=== PATIENT | female | born 1960 | race African-American/Black ===

== ENCOUNTER → 2021-03-11 11:11 | Outpatient (CLI) | payer OTHER, SELFPAY ==
[2021-03-11 13:04] LABS: COVID19 -Nasal RAPID Negative (Negative)
== END ==
PROVIDERS: Visit Provider Physician Assistant
DX: Z01.812 Encounter for preprocedural laboratory examination (principal); Z20.822 Contact with and (suspected) exposure to COVID-19
CPT/HCPCS: 87635

== ENCOUNTER 2021-03-12 07:18 | Day surgery (SDC) | payer OTHER, SELFPAY ==
[2021-03-12 07:36] VITALS: BMI 26.9
[2021-03-12 07:44] VITALS: BP 160/97; PULSE 70; RESP 16; TEMP 36.2; O2SAT 100
[2021-03-12] MEDS: LACTATED RINGERS 1,000 ML 42 ML IV (07:44)
--- NOTE | 2021-03-12 08:56 | P.HP_ITS ---
History of Present Illness History of Present Illness Date Patient Seen: 03/12/21 Time Patient Seen: 08:56 Chief complaint: SCREENING COLONOSCOPY Narrative: No symptoms. Reviewed cscope from 2010. tortuous colon. Diverticulosis Patient History Medical History Hypertension Pelvic prolapse Family & Social History Family history unavailable: No Social History: household members spouse Tobacco & Substance use: Smoking Status Never smoker alcohol intake current alcohol intake frequency 0-2 drinks per day Substance Use Type does not use Meds Home Medications and Allergies Home Medications Medication Instructions Recorded Confirmed Type losartan 50 mg tablet 100 mg PO DAILY 03/12/21 03/12/21 History Allergies Allergy/AdvReac Type Severity Reaction Status Date / Time codeine AdvReac Intermediate Nausea Verified 03/12/21 07:46 Review of Systems Review of Systems ROS: Yes All systems reviewed with the patient and are negative except as o therwise documented Exam Vital Signs (past 8 hours): - 03/12/21 07:44 Temperature 97.2 F L Pulse Rate 70 Respiratory Rate 16 Blood Pressure 160/97 H Pulse Oximetry 100 Oxygen Delivery Method Room Air Const General: cooperative and comfortable Orientation: alert HENHI Head: normocephalic Ears: external ears normal Nose: external nose normal Face and sinus: normal facial exam Mouth: oral mucosae normal Eyes General: appearance normal, both eyes and all related structures Neck Neck: normal visual inspection Chest Chest: normal inspection of the chest Resp Effort & Inspection: normal respiratory effort Auscultation: clear to auscultation bilaterally Cardio Rate: regular rate Rhythm: regular rhythm Heart Sounds: no murmurs GI Inspection: normal to inspection Palpation: soft and No tender Auscultation: normal bowel sounds Skin General: no rashes or lesions noted and No jaundice Neuro General: patient alert and moves all extremities Cognition: normal cognition Speech: speech normal Extrem General: no pedal edema Psych Appearance: grossly normal Assessment & Plan Assessment & Plan narrative: 61yo female indicated for colon cancer screening. Proceed with colonoscopy
--- NOTE | 2021-03-12 08:58 | PM.PREOP ---
Pre-operative Note COVID-19 COVID-19 status: Negative Result date/Date tested (Pos, Neg/Pending): 03/11/21 Interval Note History & Physical reviewed/Exam performed by Physician: Yes Changes to H&P: No ASA Class (for procedural sedation): II
[2021-03-12] MEDS: fentaNYL 250 MCG/5 ML INJ IV (09:04)
[2021-03-12] MEDS: MIDAZOLAM 5 MG/5 ML VIAL IV (09:04)
--- NOTE | 2021-03-12 09:25 | PM.OP.ENDO ---
Operative Date/Time/Diagnoses Date of procedure: 03/12/21 Time of procedure: 09:25 Pre-op diagnosis: Colon cancer screening Post-op diagnosis: same Procedure & Clinicians Study performed: colonoscopy Same procedure as scheduled: Yes Indications: Colon cancer screening. Surgeon: Chris Cardoso Procedure Notes SCOAP/Timeout: Done Procedure in detail: After the risks and benefits were explained, written and verbal informed consent was obtained. The patient was brought into the procedure room and placed into the left lateral decubitus position. Conscious sedation medication was applied as per nursing documentation. Digital rectal examination was accomplished. The scope was introduced into the patient and advanced under direct visualization to the cecum as identified by the appendiceal orifice and ileocecal valve. The scope was slowly withdrawn to carefully examine the mucosa for any defects or lesions. Comprehensive imaging was accomplished throughout the rectum including the dentate line. The colon was decompressed, the scope was then removed from the patient who tolerated the procedure well. Prep adequate 4mg versed, 100mcg fentanyl Scope withdrawal time: 9min Sedation minutes: 22 Impression: Patient had very mild internal hemorrhoids. The diverticulosis was encountered throughout the sigmoid and extended all the way through into even the ascending colon. There is mild tortuosity is encountered in the sigmoid. No significant polyps mass lesions or inflammatory features identified throughout. Endoscopic diagnosis 1. Diverticulosis 2. Hemorrhoids Post-procedure Plan for aftercare: Repeat colonoscopy will be suggested for 10 years time. An earlier exam should be pursued if symptoms warrant. Disposition: PACU
[2021-03-12 09:29] VITALS: BP 121/68; PULSE 69; RESP 12; TEMP 36.2; O2SAT 98
[2021-03-12 09:34] VITALS: BP 99/62; PULSE 64; RESP 16; O2SAT 100
[2021-03-12 09:41] VITALS: BP 107/68; PULSE 72; RESP 16; O2SAT 99
== END 2021-03-12 09:42 | disposition home or self-care (01) ==
PROVIDERS: Referring Provider Internal Medicine Gastroenterology; Visit Provider Internal Medicine Gastroenterology
PROC: 0DJD8ZZ Inspection of Lower Intestinal Tract, Via Natural or Artificial Opening Endoscopic (ICD-10-PCS; CPT 45378; principal; 2021-03-12 08:30)
DX: Z12.11 Encounter for screening for malignant neoplasm of colon (principal); I10 Essential (primary) hypertension; K57.30 Diverticulosis of large intestine without perforation or abscess without bleeding; K64.9 Unspecified hemorrhoids
CPT/HCPCS: 45378; J2250; J3010

== ENCOUNTER 2022-03-31 16:32 | Emergency (ER) | payer OTHER, SELFPAY ==
[2022-03-31] VITALS (9 sets, daily range): BP systolic 133–181; BP diastolic 69–94; PULSE 74–104; RESP 12–30; TEMP 36.7; O2SAT 98–100; BMI 27.9
[2022-03-31] MEDS: FAMOTIDINE 20 MG/2 ML VIAL IV (16:53)
[2022-03-31] MEDS: EPINEPHrine 1 MG/ML 0.3 MG IM (16:53)
[2022-03-31] MEDS: methylPREDNISolone 125 MG/2 ML VIAL IV (16:54)
[2022-03-31] MEDS: diphenhydrAMINE 50 MG/ML VIAL IV (16:54)
--- NOTE | 2022-03-31 17:15 | PC.NURSE ---
Per Provider pt will be monitored for at least 4 hrs beginning at 1700.
--- NOTE | 2022-03-31 17:16 | ED.ALLEREA ---
HPI - Allergic Reaction <Varinder Patel PA-C - Last Filed: 03/31/22 20:45> General Chief complaint: Allergic Reaction Stated complaint: Bee Sting, Allergic Reaction/Needs Epipen, [place] Time Seen by Provider: 03/31/22 16:44 Mode of arrival: Ambulatory History of Present Illness HPI narrative: 62-year-old female with past history of allergy to bee stings, presents to the ED status post a bee sting sustained just prior to arrival. Patient sustained a bee sting on her hairline, following which she felt her tongue taken and is noticed swelling and redness on her face, followed by itchy generalized hives. Patient denies trouble breathing, wheezing, nausea, vomiting, abdominal pain. Patient does not currently carry an EpiPen on her. No other known allergies. Related Data Home Medications Medication Instructions Recorded Confirmed losartan 50 mg tablet 100 mg PO DAILY 03/12/21 03/12/21 Previous Rx's Medication Instructions Recorded epinephrine 0.3 mg/0.3 mL 0.3 mg (0.3 mL) IM Q4H PRN 03/31/22 injection, auto-injector (EpiPen) anaphylaxis #2 ea Allergies Allergy/AdvReac Type Severity Reaction Status Date / Time codeine AdvReac Intermediate Nausea Verified 03/31/22 16:44 Review of Systems <Varinder Patel PA-C - Last Filed: 03/31/22 20:45> Review of Systems ROS Unobtainable: All systems reviewed & are unremarkable except as noted in HPI and below Constitutional Constitutional: Denies chills, Denies fatigue, Denies fever(s), Denies frequent falls, Denies lethargy and Denies weakness Eyes Eyes: Denies change in vision, Denies eye discharge, Denies irritation and Denies loss of vision ENT Ears, Nose, Mouth, and Throat: Denies change in voice, Denies dizziness, Reports lip swelling, Denies neck pain, Denies sore throat, Denies throat swelling and Reports tongue swelling Comments: Facial swelling, erythema Cardiovascular Cardiovascular: Denies chest pain, Denies irregular heart rhythm, Denies lightheadedness, Denies palpitations, Denies dyspnea, Denies dyspnea on exertion and Denies orthopnea Respiratory Respiratory: Denies cough, Denies dyspnea, Denies dyspnea on exertion and Denies wheezing Gastrointestinal Gastrointestinal: Denies abdominal pain, Denies change in bowel habits, Denies diarrhea, Denies nausea and Denies vomiting Genitourinary Genitourinary: Denies hematuria, Denies flank pain, Denies urinary incontinence and Denies urinary urgency Musculoskeletal Musculoskeletal: Denies back pain, Denies muscle weakness, Denies neck pain, Denies numbness and Denies tingling Integumentary/Breasts Skin/Breast: Denies pruritus, Denies erythema, Reports rash and Denies wounds Comments: Generalized Itchy rash Neurologic Neurologic: Denies behavioral changes, Denies confusion, Denies dizziness, Denies frequent falls, Denies loss of vision, Denies numbness, Denies tingling and Denies weakness Psychiatric Psychiatric: Denies anxiety, Denies behavioral changes, Denies confusion, Denies depression, Denies homicidal ideation and Denies suicidal ideation Endocrine Endocrine: Denies fatigue, Denies flushing and Denies palpitations Hematologic/Lymphatic Hematologic/Lymphatic: Denies easy bruising Allergic/Immunologic Allergic/Immunologic: Denies urticaria, Reports lip swelling, Denies throat swelling, Reports tongue swelling and Denies wheezing Patient History <Varinder Patel PA-C - Last Filed: 03/31/22 20:45> Medical History Hypertension Pelvic prolapse Social History household members: spouse Smoking Status: Never smoker alcohol intake: current Smoking Status: Never smoker alcohol intake frequency: 0-2 drinks per day Substance Use Type: does not use Exam <Varinder Patel PA-C - Last Filed: 03/31/22 20:45> Narrative Exam Narrative: Const General:?cooperative, healthy appearing and comfortable [facility] Head:?normal to inspection Ears:?hearing grossly normal bilaterally Nose:?external nose normal Face and sinus:?normal facial exam and sinuses nontender; Mouth:?oral mucosae normal; mild tongue swelling Throat:?posterior oropharynx normal; airway is patent Eyes General:?appearance normal, both eyes and all related structures Neck Neck:?normal visual inspection and no lymphadenopathy noted Resp Effort & Inspection:?normal respiratory effort Auscultation:?clear to auscultation bilaterally; no wheezing bilaterally Cardio Rate:?regular rate Rhythm:?regular rhythm Integumentary Itchy, erythematous generalized hives Neuro General:?patient alert, patient awake and patient oriented x3 Initial Vital Signs Initial Vital Signs: Vital Signs Temperature 98.0 F 03/31/22 16:41 Pulse Rate 104 H 03/31/22 16:41 Respiratory Rate 12 03/31/22 16:41 Blood Pressure 181/94 H 03/31/22 16:41 Pulse Oximetry 99 03/31/22 16:41 Oxygen Delivery Method 03/31/22 16:41 <Ani Juarez DO - Last Filed: 04/01/22 08:03> Initial Vital Signs Initial Vital Signs: Vital Signs Temperature 98.0 F 03/31/22 16:41 Pulse Rate 104 H 03/31/22 16:41 Respiratory Rate 12 03/31/22 16:41 Blood Pressure 181/94 H 03/31/22 16:41 Pulse Oximetry 99 03/31/22 16:41 Oxygen Delivery Method 03/31/22 16:41 Course <Varinder Patel PA-C - Last Filed: 03/31/22 20:45> Orders Ordered: Discontinued Medications Diphenhydramine HCl (Diphenhydramine 50 Mg/Ml Vial) 50 mg IV NOW ONE Stop: 03/31/22 16:50 Last Admin: 03/31/22 16:54 Dose: 50 mg Documented By: FRANTZ Epinephrine HCl (Epinephrine 1 Mg/Ml) 0.3 mg IM NOW ONE Stop: 03/31/22 16:50 Last Admin: 03/31/22 16:53 Dose: 0.3 mg Documented By: FRANTZ Famotidine (Famotidine 20 Mg/2 Ml Vial) 20 mg IV NOW SARATH Last Admin: 03/31/22 16:53 Dose: 20 mg Documented By: FRANTZ Methylprednisolone (Methylprednisolone 125 Mg/2 Ml Vial) 125 mg IV NOW ONE Stop: 03/31/22 16:50 Last Admin: 03/31/22 16:54 Dose: 125 mg Documented By: FRANTZ Vital Signs Vital signs: Vital Signs - 8 hr 03/31/22 16:41 03/31/22 16:59 03/31/22 17:00 Temperature 98.0 F Pulse Rate 104 H 87 88 Respiratory Rate 12 16 30 H Blood Pressure 181/94 H Pulse Oximetry 99 100 100 Oxygen Delivery Method Room Air 03/31/22 17:01 03/31/22 17:01 03/31/22 17:30 Temperature Pulse Rate 85 Respiratory Rate 26 H Blood Pressure 174/81 H 152/78 H Pulse Oximetry 100 Oxygen Delivery Method Nasal Cannula 03/31/22 17:30 03/31/22 18:00 03/31/22 18:00 Temperature Pulse Rate 77 74 Respiratory Rate 13 15 Blood Pressure 143/69 H Pulse Oximetry 100 98 Oxygen Delivery Method 03/31/22 18:30 03/31/22 18:30 03/31/22 19:00 Temperature Pulse Rate 75 Respiratory Rate 13 Blood Pressure 133/75 136/71 Pulse Oximetry 98 Oxygen Delivery Method 03/31/22 19:00 Temperature Pulse Rate 76 Respiratory Rate 15 Blood Pressure Pulse Oximetry 98 Oxygen Delivery Method Room Air <Ani Juarez, - Last Filed: 04/01/22 08:03> Orders Ordered: Discontinued Medications Diphenhydramine HCl (Diphenhydramine 50 Mg/Ml Vial) 50 mg IV NOW ONE Stop: 03/31/22 16:50 Last Admin: 03/31/22 16:54 Dose: 50 mg Documented By: FRANTZ Epinephrine HCl (Epinephrine 1 Mg/Ml) 0.3 mg IM NOW ONE Stop: 03/31/22 16:50 Last Admin: 03/31/22 16:53 Dose: 0.3 mg Documented By: FRANTZ Famotidine (Famotidine 20 Mg/2 Ml Vial) 20 mg IV NOW SARATH Last Admin: 03/31/22 16:53 Dose: 20 mg Documented By: FRANTZ Methylprednisolone (Methylprednisolone 125 Mg/2 Ml Vial) 125 mg IV NOW ONE Stop: 03/31/22 16:50 Last Admin: 03/31/22 16:54 Dose: 125 mg Documented By: FRANTZ Vital Signs Vital signs: Vital Signs - 8 hr 03/31/22 16:41 03/31/22 16:59 03/31/22 17:00 Temperature 98.0 F Pulse Rate 104 H 87 88 Respiratory Rate 12 16 30 H Blood Pressure 181/94 H Pulse Oximetry 99 100 100 Oxygen Delivery Method Room Air 03/31/22 17:01 03/31/22 17:01 03/31/22 17:30 Temperature Pulse Rate 85 Respiratory Rate 26 H Blood Pressure 174/81 H 152/78 H Pulse Oximetry 100 Oxygen Delivery Method Nasal Cannula 03/31/22 17:30 03/31/22 18:00 03/31/22 18:00 Temperature Pulse Rate 77 74 Respiratory Rate 13 15 Blood Pressure 143/69 H Pulse Oximetry 100 98 Oxygen Delivery Method 03/31/22 18:30 03/31/22 18:30 03/31/22 19:00 Temperature Pulse Rate 75 Respiratory Rate 13 Blood Pressure 133/75 136/71 Pulse Oximetry 98 Oxygen Delivery Method 03/31/22 19:00 Temperature Pulse Rate 76 Respiratory Rate 15 Blood Pressure Pulse Oximetry 98 Oxygen Delivery Method Room Air MDM - Allergic Reaction <Varinder Patel PA-C - Last Filed: 03/31/22 20:45> MDM Narrative Medical decision making narrative: 62-year-old female with past history of allergy to bee stings, presents to the ED status post a bee sting sustained just prior to arrival. Given that patient has angioedema and hives, will treat patient for anaphylaxis. Patient given epinephrine, Solu-Medrol, Benadryl, Pepcid AC. Patient's symptoms improved with treatment. Will observe patient for 4 hours post appy, discharged home with a prescription for epinephrine. Patient did well in the ED during the 4 hours of observation post epinephrine. Discharged patient home with a prescription for EpiPen, ED return precautions. Patient verbalized understanding. Discharge Plan Departure Patient Disposition: Home Clinical Impression: Anaphylactic reaction Instructions: DI for Anaphylaxis Activity Restrictions/Additional Instructions: You were evaluated in the ED today for an allergic reaction. You suffered an anaphylactic reaction with tongue swelling, facial swelling, hives. You were treated with epinephrine, a steroid, Benadryl, Pepcid AC. Your responded well to the medications. You were also observed for 4 hours after the administration of the epinephrine to ensure that you did not have any rebound reactions. You are being prescribed a EpiPen that you will need to carry with you at all times from now on in the event of a repeat anaphylactic reaction. At any time, if you experience an anaphylactic reaction, please use the EpiPen immediately, call 911 to be seen in the ED. Prescriptions: New epinephrine [EpiPen] 0.3 mg/0.3 mL auto-injector 0.3 mg IM Q4H PRN (Reason: anaphylaxis) Qty: 2 0RF No Action losartan 50 mg tablet 100 mg PO DAILY Referrals: Miscellaneous,Doctor, MD [Primary Care Provider] - Visit Report Forms: Patient Portal/API <Ani Jaurez DO - Last Filed: 04/01/22 08:03> Cosign ED Attending Jose Franciscoature Attestation: I was immediately available in the department for consultation. Documentation has been reviewed. I agree with assessment and plan.
== END 2022-03-31 20:59 | disposition home or self-care (01) ==
PROVIDERS: Emergency Provider Student in an Organized Health Care Education/Training Program
DX: T63.441A Toxic effect of venom of bees, accidental (unintentional), initial encounter (principal)
CPT/HCPCS: 36415; 96372; 96374; 96375; 99284; J0171; J1200; J2930